=== PATIENT | male | born 1945 | race Caucasian/White ===

== ENCOUNTER 2016-09-22 16:35 | Emergency (ER) | payer OTHER ==
[~2016-09-22] VITALS: Ht 175.3 cm; Wt 108.9 kg
[~2016-09-22 16:35] MED LIST: ABILIFY10 M1 PO; ADVIL LIQUI-GE200 M1 PO; ALDACTONE25 MG PO; ALTACE5 M2 PO; ASPIRIN EC325 M2 PO; ATORVASTATIN CA20 M1 PO; BYSTOLIC2.5 M1 PO; DELTASONE20 MG PO; DULOXETINE HCL30 MG PO; DULOXETINE HCL60 MG PO; LEVOTHYROXINE50 MCG PO; METFORMIN HCL500 M3 PO; OMEPRAZOLE40 M1 PO; TORSEMIDE100 M1 PO; ULTRAM50 M1 PO; [UNRECOGNIZED DRUG - OTHER] PO
--- NOTE | 2016-09-22 16:56 | ED CRITICAL CARE ---
History of Present Illness General Chief Complaint: Cardiopulmonary Resuscitation Stated Complaint: CPR Source: EMS Exam Limitations: clinical condition Vital Signs & Intake/Output Vital Signs & Intake/Output see nursing notes Allergies Coded Allergies: No Known Allergies (05/04/15) Reconcile Medications [ANACETRAPIB] 100 MG TAB 1 TAB PO DAILY CHOLESTEROL (Reported) Aripiprazole (Abilify) 10 MG TABLET 1 TAB PO DAILY DEPRESSION (Reported) Aspirin (Ecotrin*) 325 MG TABLET.DR 1 TAB PO DAILY HEART HEALTH (Reported) Duloxetine HCl 30 MG CAPSULE.DR 1 CAP PO QPM DEPRESSION (Reported) Duloxetine HCl 60 MG CAPSULE.DR 1 CAP PO QPM DEPRESSION (Reported) GIVEN 08/03 TIME: 2100 Ibuprofen (Advil Liqui-Gels) 200 MG CAPSULE 1 TAB PO Q6 PAIN (Reported) Levothyroxine Sodium 50 MCG TABLET 1 TAB PO DAILY AC THYROID (Reported) Metformin HCl 500 MG TABLET 2 TAB PO DAILY DIABETES (Reported) Reason to Stop at ADM: CR 1.8 Nebivolol HCl (Bystolic) 2.5 MG TABLET 1 TAB PO DAILY HEART (Reported) Omeprazole 40 MG CAPSULE.DR 1 CAP PO DAILY GI (Reported) Ramipril (Altace) 5 MG CAPSULE 1 CAP PO DAILY BP (Reported) Spironolactone (Aldactone) 25 MG TABLET 1 TAB PO DAILY HEART (Reported) Torsemide 100 MG TABLET 1 TAB PO DAILY WATER PILL (Reported) Tramadol HCl (Ultram) 50 MG TABLET 1 TAB PO Q6 PAIN (Reported) Triage Nurses Notes Reviewed? yes Onset: Abrupt Duration: minute(s): (30) Timing: single episode today Injury Environment: home Severity: severe Method of Injury: fall HPI: 71 year old male with history of PPM, CAD, multiple CT's who presents via EMS after cardiac arreset. According to BLS he fell off the back of a utility truck and sustained abrasion to top of his head. According to bystanders he was struggling to speak and then became unresonsive. No bystander CPR for approximatly 10 minutes. Initial call at 16:00. Past History Medical History Any Pertinent Medical History? 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 MOTHER (renal disease treated with nephrectomy ???). Hx Contributory? No Review of Systems Review of Systems Constitutional: Reports: see HPI (UNABLE TO OBTAIN FROM PT). Physical Exam Physical Exam General Appearance: well developed/nourished, severe distress, obese Head: SCALP ABRASION TO TOP OF HEAD Eyes: Bilateral: other (FIXED/DILATED). Neck: normal inspection Respiratory: B/L AIR ENTRY Cardiovascular: NO HEART SOUNDS Peripheral Pulses: 0 carotid (R), 0 carotid (L) Gastrointestinal: soft Extremities: NO MOVEMENT Skin: cyanosis Core Measures ACS in differential dx? Yes ASA ordered for poss ACS? NO CVA/TIA Diagnosis: No Severe Sepsis Present: No Septic Shock Present: No Progress Differential Diagnoses I considered the following diagnoses in my evaluation of the patient: [AMI, PE, AORTIC DISSECTION, VTACH, VFIB, ] Plan of Care: see cardiac resusscitation sheet patient pronounced 14:49 D/W ME, PATIENT WILL BE A CASE Initial ED EKG: none Rhythm Strip: PEA Departure Departure Time of Disposition: 1448 Disposition: Condition: Stable Clinical Impression Primary Impression: Cardiac arrest Referrals: WENDI WITT,GEN Aguilar (PCP/Family) Departure Forms: General Discharge Information Critical Care Note Critical Care Note Critical Care Time: 30-74 min (INCLUDING CHARTING)
== END 2016-09-22 16:49 | disposition expired ==
LOC: ERH 16:35 → ENTRNSPT 19:40 → CMPTRNSPT 20:03 → ERH 20:53
DX: I46.9 Cardiac arrest, cause unspecified (principal); W17.89XA Other fall from one level to another, initial encounter; Y92.9 Unspecified place or not applicable; Y93.9 Activity, unspecified
CPT/HCPCS: 1387; 94799